=== PATIENT | male | born 2005 | race Caucasian/White ===

== ENCOUNTER 2025-06-20 15:56 | Emergency (ER) | payer MEDICAID, SELFPAY ==
--- OUTSIDE RECORDS SUMMARY | 2025-06-20 16:01 | XMS_ITS | Continuity of Care Document ---
Author Organization [facility] Address [address] [place] [address] Phone Care Team Providers Care Burrito Maker Name Role Phone Durga Arias DO Unavailable Unavailable Allergies, Adverse Reactions, Alerts Substance Reaction Status Criticality No Known Allergies Active No Inform ation Procedures Procedure Date ROUTINE VENIPUNCTURE RBC SED RATE, NONAUTOMATED COMPLETE CBC W/AUTO DIFF WBC OFFICE/OUTPATIENT VISIT, EST OFFICE/OUTPATIENT VISIT, EST OFFICE/OUTPATIENT VISIT, EST Decadron Dexamethasone sodium phos Per 1 Mg Inj Kenalog Triamcinolone acetonide Inj Per 10mg THER/PROPH/DIAG INJ, SC/IM OFFICE/OUTPATIENT VISIT, NEW No Charge Advance Directives Directive Yes / No Effective Date File Name No Information Encounters Encounter Description Practice Location Reason(s) For Visit Diagnoses Date Provider Providers Copied on Encounter [facility], [address], [place], [id number], tel:[phone] [facility] Kanwal No Information Juana Calixto. [address], [place], [id number], [place]. tel:[phone] Referring Provider: Durga Hall, [address] [place], [address] . tel:[phone] [facility], [address], [place], [id number], [place] tel:[phone] [facility] Kanwal Iron deficiency anemia secondary to blood loss (chronic) 5 Juanasuni Calixto. [address], [place], [id number], [place]. tel:[phone] Referring Provider: Durga Hall, [address] [place], [address] . tel:[phone] OFFICE/OUTPAT IENT VISIT, EST [facility], [address], [place], [id number], [place] tel:[phone] [facility] Ingrown toenail (chief complaint) Ingrowing nail 4 Casper Aggarwal. [address] [place] [address], [id number], [place]. tel:[phone] Referring Provider: Alessia Thomas, [address] [place] [address], [address] . tel:[phone] OFFICE/OUTPAT IENT VISIT, EST [facility], [address], [place], [id number], [place] tel:[phone] [facility] Ingrown toenail (chief complaint) Granulomatous disorder of skin 4 Casper Aggarwal. [address] [place] [address], [id number], [place]. tel:[phone] Referring Provider: Alessia Thomas, [address] [place] [address], [address] . tel:[phone] OFFICE/OUTPAT IENT VISIT, EST [facility], [address], [place], [id number], [place] tel:[phone] [facility] Ingrown toenail (chief complaint) Ingrowing nail Oct- 4 Casper Aggarwal. [address] [place] [address], [id number], [place]. tel:[phone] Referring Provider: Alessia Thomas, [address] [place], [address] . tel:[phone] OFFICE/OUTPAT IENT VISIT, [facility], [address] [place] [address], [id number], [place] tel:[phone] [facility] Rash (chief complaint) Allergic contact dermatitis due to plants, except food 3 Willi Sellers. [address] [place] [address], [address], [place]. tel:[phone] Referring Provider: Verito Márquez, [address] [place] [address], [address]. tel:[phone] [facility], [address] [place] [address], [id number], [place] tel:[phone] [facility] No Information 1 Ivory Caal. [address] [place] [address], [address], [place]. tel:[phone] Referring Provider: Afua Baldwin, [address] [place] [address], [address]. tel:[phone] Family History Family Member Type Diagnosis Age At Onset No Information Payers Payer name Insurance type Covered republican ID Authorlia sawyer(s) [facility] [id number] Social History Type Description Quantity Date Captured Comments Alcohol Use Details Unknown Caffeine Use Details Unknown Tobacco Use Status No Information Smoking Status No Information Sex Male Chief Complaint And Reason For Visit No Information Reason For Referral Reason For Referral No Information History Of Present Illness Encounter Date Complaint History Of Prese nt Illness Ingrown toenail The symptoms beg an 4 weeks ago and generally lasts varies. The symptoms are reported as being moderate. The symptoms occur constantly. Presents for follow up on L inner ingrown toenail. States area has become increasingly painful since last visit. Had pus-like drainage a few days ago and rates pain 7/10 at that time. States pain is less today and is having no drainage. Rates pain today 3/10 with palpation. Ingrown toenail The symptoms beg an 4 weeks ago and generally lasts 4 Weeks. Presents for follow up on ingrown L inner great toenail. Has completed round of Cephalexin as directed by provider. Pt states that his toe is some better. Has pain only with palpation. Area is scabbed and states that there is no drainage present. Ingrown toenail The symptoms beg an 3 weeks ago and generally lasts 3 Weeks. Presents with c/o ingrown toenail on inner L great toe for approx 3 weeks. Has been treating at home. Soaking foot in Epsom salt and applying Neosporin. States it is not getting better. L great toe red and swollen. States he has had purulent drainage from toe. Rates pain 5/10. Is not taking anything for discomfort. Rash Onset 1 day ago. Location is face. The patient describes it as erythematous, itchy and papular. It occurs continuously. The problem is worse. Denies aggravating factors. Denies relieving factors. Pertinent negatives include diarrhea, fatigue, fever, headache, joint symptoms, kerion(s) in scalp, pain, sore throat and vomiting. Functional Status Date Functional Assessmen t No Information Instructions Date Instruction Additional Infor robbin Refer to Podiatry- Dr. Aurea Recinos lated to Ingrowing nail Silver nitrate to le ft great toeKeep area cleanCall office if tissue remains, further assessment/plan to be developed Related to Granulomatous disorder of skin RX: Keflex 500mg po BID x 10 daysContinue epsom salt soaks, stop neosporinRTC when antibiotics completed. If issue continues, consider Podiatry consult Related to Ingrowing nail Patient was administ ered a decadron/kenalog IM injection in hip after area was cleansed with alcohol. Patient tolerated the injection without complaint. Patient was instructed to use an antihistamine daily to help with itch. He may also use Aveeno oatmeal baths and calamine lotion to help ease the discomfort. Patient is to contact or return to clinic as needed if symptoms persist or worsen. Can send TAC 0.1% cream if needed but currently is only on patient's face. Patient agrees to plan and has no further questions at this time. Related to Allergic contact dermatitis due to plants, except food Assessments Type Assessment Date No Information Patient Care Teams Name Effective Dates (start - stop) Status Members No Information
--- OUTSIDE RECORDS SUMMARY | 2025-06-20 16:01 | XMS_ITS | Clinical Summary ---
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 Role Phone Gladys Hicks DO Primary Care Provider Allergies No known active allergies Medications No known medications Active Problems Problem Noted Date Diagnosed Date Insect bite of right ring finger 05/04/2024 Encounters Date Type Department Care Team Description 06/05/2025 External Device Data [facility] ABSTRACTION Provider, Abstract 06/05/2025 External Device Data [facility] Provider, Abstract 06/05/2025 External Device Data [facility] Provider, Abstract 06/04/2025 External Device Data [facility] Provider, Abstract 05/21/2025 External Device Data [facility]STRACTION Provider, Abstract 05/08/2025 External Device Data [facility]STRACTION Provider, Abstract 05/07/2025 External Device Data [facility]STRACTION Provider, Abstract 04/23/2025 External Device Data [facility] ABSTRACTION Provider, Abstract 04/23/2025 External Device Data [facility] ABSTRACTION Provider, Abstract 04/23/2025 External Device Data [facility] ABSTRACTION Provider, Abstract 04/16/2025 External Device Data [facility] ABSTRACTION Provider, Abstract 03/26/2025 External Device Data [facility] ABSTRACTION Provider, Abstract from Last 3 Months Social History Tobacco Use Types Packs/Day Years Used Date Smoking Tobacco: Never Tobacco Cessation:Counseling Given: Not Answered Sex and Gender Information Value Date Recorded Sex Assigned at Not on file Legal Sex Male 11:04 AM CDT Gender Identity Not on file Sexual Orientation Not on file Last Filed Vital Signs Vital Sign Reading Time Taken Comments Blood Pressure 119/73 05/04/2024 12:00 PM CDT Pulse 70 05/04/2024 12:00 PM CDT Temperature 36.3 C (97.3 F) 05/04/2024 11:17 AM CDT Respiratory Rate 16 05/04/2024 12:0 0 PM CDT Oxygen Saturation 98% 05/04/2024 12: 00 PM CDT Inhaled Oxygen Concentration - - Weight 84.7 kg (186 lb 12.8 oz) 024 11:17 AM CDT Height 185.4 cm (6' 1) 05/04/2024 11:1 7 AM CDT Body Mass Index 24.65 05/04/2024 11:17 AM CDT Plan of Treatment Health Maintenance Due Date Last Done Comments CHLAMYDIA SCREENING (ANNUAL) 11-24 YEARS 01/27/2016 HPV VACCINES (1 - Male 3-dose series) 01/27/2020 DTAP/TDAP/TD VACCINES (1 - Tdap) 01/27/2024 HEPATITIS B VACCINES (1 of 3 - 19+ 3-dose series) 06/2024 INFLUENZA VACCINE (#1) 2025 Insurance [employer] Care Teams Mineral Ore Processing Labourer Relationship Specialty Start Date End Date Gladys Hicks DO [address] [place] [id number] PCP - General Family Practice 05/04/24
[2025-06-20 16:15] VITALS: BP 115/68; PULSE 62; RESP 18; TEMP 36.4; O2SAT 100
--- NOTE | 2025-06-20 16:58 | ED.SKABFB ---
HPI - Skin/Abscess/Foreign Bdy General Chief complaint: Skin/Abscess/Foreign Body Stated complaint: Skin/Abscess/Foreign Body Time Seen by Provider: 06/20/25 16:30 Source: patient and RN notes reviewed Mode of arrival: ambulatory Limitations: no limitations History of Present Illness HPI narrative: 20-year-old male presents Express Care complaining of poison sruthi approximately 2 days. Patient said he has burning brush 2 days ago when he developed a rash to his right forearm. Since that is spread to his chest and groin area. Patient reports the rash is itchy. He fevers, body aches, chills, upper respiratory symptoms, pain, or any other symptoms. In the calamine lotion without relief. Related Data Allergies Allergy/AdvReac Type Severity Reaction Status Date / Time No Known Allergies Allergy Verified 06/20/25 16:41 Review of Systems Review of Systems: CONSTITUTIONAL: Denies fever, chills, or sweats. EYES: Denies visual changes, redness, or discharge. ENT: Denies rhinorrhea, congestion, sore throat, or otalgia. CARDIOVASCULAR: Denies chest pain, palpitations, or edema. RESPIRATORY: Denies cough or dyspnea. GASTROINTESTINAL: Denies abdominal pain, nausea, vomiting, or diarrhea. GENITOURINARY: Denies dysuria or hematuria. SKIN: Positive for rash and itching. MUSCULOSKELETAL: Denies back pain, joint pain, or myalgia. NEUROLOGIC: Denies headache, numbness, or weakness. PSYCHIATRIC: Denies anxiety or depression. All other systems reviewed are negative, except as documented in HPI. PMFSH Comments At the time of my signature, I reviewed and agree with the nursing past medical, surgical, social, and family history. There is no relevant family history pertinent to the patient complaint. Exam Narrative: GENERAL: This is a well-nourished, well-developed adult, in no apparent distress. They are non ill-appearing, nontoxic appearing. HEAD: normocephalic, atraumatic. EYES: Sclera clear/white. Conjunctiva normal. Vision is grossly intact. Extraocular movements intact EARS: External ears normal,Hearing grossly intact. NOSE: External nose normal THROAT: Mucous membranes moist, NECK: Neck supple CARDIOVASCULAR: Regular rate and rhythm RESPIRATORY: Respiratory rate normal, respiratory effort nonlabored, no respiratory distress SKIN: Erythematous papular vesicular rash to the patient's proximal anterior right forearm and scattered throughout the patient's lower abdomen, scantly through his chest, and to groin. No area of fluctuance, no induration, rashes nontender and pruritic. No exudate. NEURO: awake, alert, and oriented to person, place and time. There were no obvious focal neurologic abnormalities. EXTREMITIES: No joint tenderness, effusion, or edema noted. Course Course Emergency Course: Portions of this record may have been created with voice recognition software Level of Care: Express Care Visit Vital Signs Vital signs: Vital Signs Temperature 97.6 F 06/20/25 16:15 Pulse Rate 62 06/20/25 16:15 Respiratory Rate 18 06/20/25 16:15 Blood Pressure 115/68 06/20/25 16:15 Pulse Oximetry 100 06/20/25 16:15 Oxygen Delivery Room Air 06/20/25 16:15 Temperature 97.6 F 06/20/25 16:15 Pulse Rate 62 06/20/25 16:15 Respiratory Rate 18 06/20/25 16:15 Blood Pressure 115/68 06/20/25 16:15 Pulse Oximetry 100 06/20/25 16:15 Oxygen Delivery Room Air 06/20/25 16:15 Reviewed MDM - Skin/Abscess/Foreign Bdy MDM Narrative Medical decision making narrative: Patient likely has poison sruthi rash. Patient given a shot of Solu-Medrol. Will send patient home on Medrol Dosepak. Advised patient start steroid Dosepak tomorrow. Discussed physical exam findings. Advised supportive measures and signs/symptoms to go to the ER. Pt is appropriate for outpt treatment and f/u. Differential Diagnosis Differential diagnosis: Likely cellulitis, eczema, impetigo and contact dermatitis Critical Care Time Critical Care Time Critical Care Time: No Discharge Plan Discharge Clinical Impression: Poison sruthi Patient Disposition: Home Condition: Stable Instructions: Poison Sruthi (ED) Additional Instructions: Take the steroid pack as directed. Start steroid tomorrow is your given a shot of steroids today. You may use vyuo-xyk-vatqfct Tecnu soap as directed on the bottle to help remove the oils from poison sruthi off your skin. You may use calamine lotion, camphor, hydrocortisone cream Benadryl cream as needed for itchiness symptoms. You may also take Zyrtec or Claritin as needed for allergy ear itchiness symptoms. Follow-up PCP in 3-5 days. If you develop any worsening redness, swelling, discharge, fevers, breathing problems, or any other concerns please go to the ER immediately. Patient Language: Portuguese Prescriptions: New methylprednisolone 4 mg tablets,dose pack See Rx Instructions .ROUTE .COMPLEX Qty: 21 0RF Rx Instructions: for 6 days Follow-up/Referrals: Kurt,Gladys Raymundo [Other] Time of Disposition: 16:50
== END 2025-06-20 17:14 | disposition home or self-care (01) ==
DX: L23.7 Allergic contact dermatitis due to plants, except food (principal)
CPT/HCPCS: 96372; 99203; G0463; J2919